=== PATIENT | female | born 2000 | race African-American/Black ===

== ENCOUNTER 2020-06-06 19:20 | Emergency (ER) | payer MEDICARE ==
[~2020-06-06] VITALS: Ht 185.4 cm; Wt 54.4 kg
--- NOTE | 2020-06-06 23:14 | Emergency Department Note ---
History of Present Illnes History of Present Illness Chief Complaint: General Medicine Complaints History of Present Illness This is a 20 year old female Chief Complaint Comment 20 Y/O FEMALE PT AAOX3 PRESENTS TO THE ER C/O VAGINAL BLEEDING AND LOWER ABD CRAMPING ONSET TODAY AROUND 1500; PT STATES VAGINAL BLEEDING WAS HEAVIER THAN NORMAL AND HAD DISCHARGE; PT DENIES BLOOD CLOTS; LNMP 04/11/20; PT STATES SHE TOOK X2 TESTS ON THURSDAY AND WERE POSITIVE; NAD NOTED AT THIS TIME; RESP EVEN/UNLABORED; SKIN WARM, DRY AND COLOR WNL FOR PT; V/S/S. . Historian: Patient Arrival Mode: Car Onset (how long ago): day(s) (1) Location: vaginal bleding Quality: bleding Radiation: Denies non-radiation, Denies back, Denies neck, Denies extremity, Denies abdomen, Denies periumbilical, Denies flank, Denies proximal, Denies distal, Denies other Severity: mild Onset quality: gradual Duration (how long): day(s) (1) Timing of current episode: intermittent Progression: waxing and waning Chronicity: new Context: Denies recent illness, Denies recent surgery, Denies recent immobilization, Denies recent travel, Denies trauma/injury, Denies new medications, Denies hx of DVT/PE, Denies non-compliance w/ medications, Denies other Exacerbating factors: none Associated symptoms: Denies denies other symptoms, Denies confusion, Denies chest pain, Denies cough, Denies diaphoresis, Denies fever/chills, Denies headaches, Denies loss of appetite, Denies malaise, Denies nausea/vomiting, Denies rash, Denies seizure, Denies shortness of breath, Denies syncope, Denies weakness, Denies other Treatments prior to arrival: none Past Medical/Family History Physician Review I have reviewed the patient's past medical and family history. Any updates have been documented here. Past Medical History Recent Fever: No Clinical Suspicion of Infectio: No New/Unexplained Change in Ment: No Past Medical History: None Past Surgical History: None Social History Smoking Cessation: Current every day smoker Alcohol Use: Occasional Review of Systems Review of Systems Constitutional: Reports no symptoms EENTM: Reports no symptoms Cardiovascular: Reports no symptoms Respiratory: Reports no symptoms Gastrointestinal: Reports no symptoms Genitourinary: Reports as per HPI Musculoskeletal: Reports no symptoms Integumentary: Reports no symptoms Neurological: Reports no symptoms Psychological: Reports no symptoms Endocrine: Reports no symptoms Hematological/Lymphatic: Reports no symptoms Physical Exam Related Data Allergies: Coded Allergies: No Known Allergies (Unverified , 06/06/20) Triage Vital Signs Vital Signs Date Time Temp Pulse Resp B/P (MAP) Pulse Ox O2 Delivery O2 Flow Rate FiO2 06/06/20 20:19 98.4 90 18 130/99 100 Room Air Vital signs reviewed: Yes Physical Exam CONSTITUTIONAL Constitutional: Present well-developed, Present well-nourished HENT HENT: Present normocephalic, Present atraumatic, Present oropharynx clear/moist, Present nose normal HENT L/R: Present left ext ear normal, Present right ext ear normal EYES Eyes: Reports PERRL, Reports conjunctivae normal NECK Neck: Present ROM normal PULMONARY Pulmonary: Present effort normal, Present breath sounds normal CARDIOVASCULAR Cardiovascular: Present regular rhythm, Present heart sounds normal, Present capillary refill normal, Present normal rate GASTROINTESTINAL Abdominal: Present soft, Present nontender, Present bowel sounds normal GENITOURINARY Genitourinary: Present exam deferred SKIN Skin: Present warm, Present dry MUSCULOSKELETAL Musculoskeletal: Present ROM normal NEUROLOGICAL Neurological: Present alert, Present oriented x 3, Present no gross motor or sensory deficits PSYCHOLOGICAL Psychological: Present mood/affect normal, Present judgement normal Results Laboratory Lab results reviewed: Yes Imaging Imaging results reviewed: Yes Assessment & Plan Medical Decision Making MDM threatened AB Reassessment Reassessment time: 23:13 Reassessment BETTER Assessment & Plan Final Impression: (1) Threatened (2) UTI (urinary tract infection) Depart Disposition: HOME, SELF-CARE Last Vital Signs Date Time Temp Pulse Resp B/P (MAP) Pulse Ox O2 Delivery O2 Flow Rate FiO2 06/06/20 20:19 98.4 90 18 130/99 100 Room Air Home Meds Active Scripts Nitrofurantoin Monohyd/M-Cryst (MACROBID 100 MG CAPSULE) 100 Mg Capsule, 100 MG PO BIDWM, #14 CAP Prov:EMMA RAMOS MD 06/06/20 EMMA RAMOS MD Jun 06, 2020 23:14
[2020-06-06] MEDS ORDERED: MACROBID 100 M100 MG PO (23:21)
--- NOTE | 2020-06-07 00:15 | Diagnostic Imaging Report ---
EXAM: First Trimester Obstetric Pelvic Ultrasound INDICATION: ^bleeding ^[id number] ^[id number] COMPARISON: None TECHNIQUE: Grayscale transverse and sagittal transabdominal and transvaginal images were obtained of the pelvis. Transvaginal imaging was medically necessary to better evaluate the endometrium, adnexa, and fetus. FINDINGS: Uterus: Orientation: Normal Size: 9.2 x 5.3 x 5.9 cm, enlarged Mass: None Cervix: Heterogeneous echotexture cervical contents without vascular flow. No intrauterine gestational sac visualized. Endometrial stripe measures 1.3 cm. Right ovary Size: 3.1 x 2 x 1.8 cm Mass/Cyst: None Left ovary Size: 3.2 x 2.2 x 1.9 cm Mass/Cyst: None Cul-de-sac: No free fluid IMPRESSION: No intrauterine gestational sac visualized. Differentials include early , ectopic , and . in progress is favored, considering history of bleeding and heterogeneous echotexture material within cervical canal. Recommend correlation with serial beta hCG and if indicated short-term follow-up ultrasound. Signed by: Dr. Gustabo Patel MD on 06/07/2020 12:12 AM
== END 2020-06-06 23:30 | disposition home or self-care (01) ==
LOC: FSED 20:26
DX: O20.9 Hemorrhage in early pregnancy, unspecified (principal); O20.0 Threatened abortion; O23.41 Unspecified infection of urinary tract in pregnancy, first trimester; O99.331 Smoking (tobacco) complicating pregnancy, first trimester
CPT/HCPCS: 76801; 80053; 81003; 81025; 85025; 99283